=== PATIENT | female | born 1980 | race Caucasian/White ===

== ENCOUNTER 2019-03-23 14:08 | Emergency (ER) | payer BC ==
[~2019-03-23] VITALS: Ht 162.6 cm; Wt 77.1 kg
[~2019-03-23 14:08] MED LIST: ATIVAN0.5 MG PO; ATIVAN1 MG; CLONAZEPAM PO; DEPAKOTE250 MG PO; KEPPRA 500 MG500 MG PO; KEPPRA XR750 MG; KEPPRA1000 MG PO; LORTAB 5 MG/5001 TA1 PO; NAPROSYN500 MG PO; PROAIR HFA8.5 GM IH; TOPAMAX100 MG PO; TOPAMAX50 MG PO
[2019-03-23] MEDS ORDERED: SINGULAIR 10 MG10 M1 PO (14:24)
[2019-03-23] MEDS ORDERED: LAMICTAL5 MG PO (14:24)
[2019-03-23] MEDS ORDERED: TRAZODONE 150150 M1 PO (14:25)
[2019-03-23 14:29] LABS: URINE BILIRUBIN NEGATIVE (Negative); URINE BLOOD 1+ (Negative); URINE CLARITY CLEAR; URINE COLOR YELLOW; URINE GLUCOSE-RANDOM NEGATIVE (Negative); URINE KETONES NEGATIVE (Negative); URINE LEUKOCYTES-REFLEX 1+ (Negative); URINE NITRITE-REFLEX NEGATIVE (Negative); URINE PROTEIN NEGATIVE (Negative); URINE UROBILINOGEN 0.2 E.U./dl (0.2-1.0)
[2019-03-23 14:37] LABS: SQUAMOUS 0-3 Few /LPF (0-3)
[2019-03-23 14:38] LABS: BACTERIA-REFLEX >30 Many /HPF (None Seen); CASTS None Seen /LPF (None Seen); CRYSTALS None Seen /LPF (None Seen); URINE RBC 3-10 Few /HPF (0-2); URINE WBC-REFLEX 6-15 Few /HPF (0-5)
[2019-03-23 15:29] LABS: HEMATOCRIT 39.3 % (37.0-47.0); HEMOGLOBIN 13.4 gm/dL (12.0-15.0); MCH 31.7 pg (26.0-34.0); MCHC 34.1 g/dL (28.0-37.0); MCV 92.9 fL (80.0-100.0); MPV 7.2 fl. (7.2-11.1); NUCLEATED RBCS 0 /100WBC; PLATELET COUNT* 338 thou/uL (150-400); RBC 4.23 mil/uL (4.20-5.00); RDW-CV 13.2 % (10.5-14.5); WBC 11.7 thou/uL (4.0-11.0)
[2019-03-23 15:39] LABS: CALCIUM 8.7 mg/dL (8.5-10.1); POTASSIUM 3.6 mmol/L (3.5-5.1)
[2019-03-23 15:43] LABS: TOTAL BILIRUBIN 0.3 mg/dL (<0.1-1.0); TOTAL PROTEIN 7.5 g/dL (6.4-8.2)
[2019-03-23 16:27] LABS: ABSOLUTE EOSINOPHILS 0.1 thou/uL (0.0-0.7); ABSOLUTE LYMPHOCYTES 3.5 thou/uL (0.8-5.3); ABSOLUTE MONOCYTES 0.1 thou/uL (0.0-1.2)
[2019-03-23 16:29] LABS: PLATELET ESTIMATE ADEQUATE
[2019-03-23] MEDS ORDERED: MACROBID 100 M100 M2 PO (17:18)
[2019-03-23] MEDS ORDERED: ONDANSETRON HCL4 M2 PO (17:18)
[2019-03-23 17:59] VITALS: BP 107/72
== END 2019-03-23 17:59 | disposition home or self-care (01) ==
LOC: M.ERS 14:08
PROVIDERS: Nurse Practitioner Family
DX: N39.0 Urinary tract infection, site not specified (principal); K57.90 Diverticulosis of intestine, part unspecified, without perforation or abscess without bleeding; N83.201 Unspecified ovarian cyst, right side; Z90.49 Acquired absence of other specified parts of digestive tract; Z98.890 Other specified postprocedural states; Z88.0 Allergy status to penicillin; Z88.8 Allergy status to other drugs, medicaments and biological substances

== ENCOUNTER → 2020-12-26 | Outpatient (CLI) | payer BC ==
[~2020-12-26] MED LIST changes: +LAMICTAL5 MG PO; +MACROBID 100 M100 M2 PO; +ONDANSETRON HCL4 M2 PO; +SINGULAIR 10 MG10 M1 PO; +TRAZODONE 150150 M1 PO
== END ==
LOC: M.MRI 13:18
PROVIDERS: ATTEND Family Medicine
DX: M25.861 Other specified joint disorders, right knee (principal); M25.561 Pain in right knee